=== PATIENT | female | born 1985 | race African-American/Black ===

== ENCOUNTER 2019-11-25 22:13 | Emergency (ER) | payer OTHER, MEDICAID ==
[~2019-11-25] VITALS: Ht 172.7 cm; Wt 89.0 kg
[2019-11-26] MEDS ORDERED: ACETAMINOPHEN 325MG TABLET PO ONE
[2019-11-26 02:25] VITALS: BP 130/80
== END 2019-11-26 02:27 | disposition home or self-care (01) ==
LOC: ER 22:13
DX: S50.01XA Contusion of right elbow, initial encounter (principal); W01.0XXA Fall on same level from slipping, tripping and stumbling without subsequent striking against object, initial encounter; Y93.89 Activity, other specified; Y92.89 Other specified places as the place of occurrence of the external cause; Y99.8 Other external cause status; J45.909 Unspecified asthma, uncomplicated; Z98.51 Tubal ligation status
CPT/HCPCS: 73080; 73090; 73110; 73130; 81025; 99284